=== PATIENT | female | born 1950 | race Caucasian/White ===

== ENCOUNTER 2019-11-10 01:18 | Inpatient (IN) | payer MEDICARE, MEDICAID ==
[~2019-11-10] VITALS: Ht 162.6 cm; Wt 67.6 kg
[~2019-11-10 01:18] MED LIST: ETOMIDATE 40 MG/20 ML ONE; PROPOFOL 10 MG/ML, 100ML IV ONE; ROCURONIUM 10 MG/ML,10ML ONE
--- NOTE | 2019-11-10 01:45 | NUR ---
BROUGHT IN BY AMBULANCE TRANSFERRRED FROM [facility] C/O DIFFICULTY BREATHING. ON CPAP UPON ARRIVAL TO ED. MEDICATION GIVEN [facility] : ASPIRIN 324 SOLU MEDROL 125 MG MAGNESIUM SULFATE 2 MGS. LASIX 40 MG KETAMINE 20 MG ZOSYN 4.5 MG WAS PLACED ON NITRO GTT - DC'D BY DR. BAUTISTA WAS PLACED ON HEPARIN GTT - DC'D BY DR. BAUTISTA
--- NOTE | 2019-11-10 01:46 | NUR ---
Pt report from Jose Guadalupe almanzar. This rn to assume care of pt. Pt states unable to swallow potassium pills. Oral liquid to be accomplished in lieu, per md verbal order.
[2019-11-10] MEDS ORDERED: POTASSIUM CHLORIDE 20 MEQ TAB.ER.PRT ONE (01:48)
[2019-11-10] MEDS ORDERED: ASPI-650 PO (01:55)
[2019-11-10] MEDS ORDERED: SERT50TA28 PO (01:55)
[2019-11-10] MEDS ORDERED: ATOR40TA78 PO (01:55)
[2019-11-10] MEDS ORDERED: SODIUM CHLORIDE 0.9% 1,000ML IVBOLUS ONE ×3 (02:00→04:00)
[2019-11-10] MEDS ORDERED: POTASSIUM CHLORIDE 10% 40 MEQ/30 ML UDC PO ONE (02:00)
[2019-11-10] MEDS ORDERED: AZITHROMYCIN 500 MG in SODIUM CHLORIDE 0.9% 250 ML IV ONE (02:00)
[2019-11-10] MEDS ORDERED: POTASSIUM CHLORIDE 20 MEQ TAB.ER.PRT PO ONE (02:00)
[2019-11-10 02:09] LABS: MEAN CORPUSCULAR HEMOGLOBIN 32.4 pg (27.0-34.8); MEAN CORPUSCULAR HGB CONC 33.4 g/dL (32.4-35.8); MEAN CORPUSCULAR VOLUME 97.1 fL (80-100); MEAN PLATELET VOLUME 7.2 fL (7.4-10.4); PLATELET COUNT 149 x10^3/uL (130-400); RED BLOOD COUNT 4.15 x10^6/uL (3.82-5.3)
[2019-11-10 02:20] LABS: ALANINE AMINOTRANSFERASE 78 U/L (12-78); ALBUMIN 2.8 g/dL (3.4-5.0); ANION GAP 12 mmol/L (5-15); CALCIUM 7.5 mg/dL (8.5-10.1); CHLORIDE 93 mmol/L (98-107)
[2019-11-10 02:24] LABS: ALKALINE PHOSPHATASE 123 U/L (45-117); BILIRUBIN,TOTAL 0.9 mg/dL (0.2-1.0); TOTAL PROTEIN 5.9 g/dL (6.4-8.2)
--- NOTE | 2019-11-10 02:49 | NUR ---
Pt still has a moderate work of breathing and rt called per md. Pt placed on opti-flow at this time.
[2019-11-10 03:00] LABS: RAPID INFLUENZA A Negative (Negative); RAPID INFLUENZA B Negative (Negative)
[2019-11-10] MEDS ORDERED: POTASSIUM CHLORIDE 40 MEQ in SODIUM CHLORIDE 0.9% 100 ML IV ONE (03:00)
[2019-11-10] MEDS ORDERED: POTASSIUM CHLORIDE 40 MEQ in SODIUM CHLORIDE 0.9% 500 ML IV ONE (03:00)
[2019-11-10 03:07] LABS: MD YES
[2019-11-10 03:08] LABS: ANISOCYTOSIS 1+; BAND#(MANUAL) 0.58 x10^3/uL; BANDS%(MANUAL) 4 % (0-7); ECHINOCYTES 1+; LYMPH#(MANUAL) 1.15 x10^3/uL (1-3.4); LYMPHS% (MANUAL) 8 % (22-44); MONOS#(MANUAL) 0.14 x10^3/uL (0.3-2.7); MONOS% (MANUAL) 1 % (2-9); PMNS WITH VACUOLES 1+; SEG#(MANUAL) 12.53 x10^3/uL (1.8-6.8); SEGS% (MANUAL) 87 % (42-75)
[2019-11-10 03:12] LABS: OVALOCYTES 1+; SPHEROCYTES 1+
[2019-11-10 03:13] LABS: <PLATELET ESTIMATE> DECREASED; <PLT MORPHOLOGY> NORMAL PLT MORPH; POLYCHROMASIA 1+
--- NOTE | 2019-11-10 03:16 | NUR ---
potassium drip started
--- NOTE | 2019-11-10 03:16 | NUR ---
pt was not tolerating high flow NC. iv NS discontinued. oj nunn in to discuss intubation with pt
--- NOTE | 2019-11-10 03:28 | NUR ---
pt intubated. 20 etomidate and 80 rocuronium used
[2019-11-10] MEDS ORDERED: ACETAMINOPHEN 325 MG TABLET PO PRN (03:30)
[2019-11-10] MEDS ORDERED: ONDANSETRON 2MG/ML, 2ML IVPush PRN (03:30)
[2019-11-10] MEDS ORDERED: HEPARIN 5,000 UNITS/ML, 1ML IV PRN (03:30)
[2019-11-10] MEDS ORDERED: HEPARIN 5,000 UNITS/ML, 1ML IV ONE (03:30)
--- NOTE | 2019-11-10 03:40 | NUR ---
pressure bag ns bolus per er md nunn
[2019-11-10] MEDS ORDERED: MIDAZOLAM HCL 25 MG in SODIUM CHLORIDE 0.9% 245 ML IV PRN ×2 (03:56→04:00)
[2019-11-10] MEDS ORDERED: HEPARIN 25,000 UNITS/500ML PMX 500 ML ONE (03:58)
[2019-11-10] MEDS ORDERED: HEPARIN 5,000 UNITS/ML, 1ML ONE (03:58)
[2019-11-10] MEDS ORDERED: PIPERACILLIN/TAZO/PMX 3.375GM 0 ML ONE (03:58)
[2019-11-10] MEDS ORDERED: PHARMACY MAY ADJ FOR RENAL FX MC SCH (04:00)
[2019-11-10] MEDS ORDERED: SENNA 176 MG/5 ML ORAL SOL NG PRN (04:00)
[2019-11-10] MEDS ORDERED: LIDOCAINE-MPF 1%, 2ML ENDO PRN ×2 (04:00→07:30)
[2019-11-10] MEDS ORDERED: GLUCAGON 1 MG IM PRN (04:00)
[2019-11-10] MEDS ORDERED: LACTULOSE 20 GM/30 ML UDC NG PRN (04:00)
[2019-11-10] MEDS ORDERED: FENTANYL PF 100 MCG/2ML IVPush PRN ×2 (04:00→07:30)
[2019-11-10] MEDS ORDERED: DEXTROSE 50%, 50ML SYRINGE IVPush PRN (04:00)
[2019-11-10] MEDS ORDERED: BISACODYL 10 MG SUPP PR PRN (04:00)
[2019-11-10] MEDS ORDERED: SENNA/DOCUSATE TABLET NG PRN (04:00)
[2019-11-10] MEDS ORDERED: DEXTROSE 4 GM TAB.CHEW PO PRN (04:00)
[2019-11-10] MEDS: HEPARIN 25,000 UNITS/500ML PMX 500 ML IV PRN (04:13)
[2019-11-10] MEDS ORDERED: PIPERACILLIN/TAZO/PMX 3.375GM 50 ML ONE (04:15)
--- NOTE | 2019-11-10 04:16 | NUR ---
versed used for sedation. pt tolerating vent and sedation well.
--- NOTE | 2019-11-10 04:47 | NUR ---
LARGE BOTTLE OF PROPOFOL WASTED. DR VANCE ORDERED VERSED DRIP SO PROPOFOL WAS NOT USED. RUFINO Reed RN IN TO WITNESS WASTE WITH ME.
[2019-11-10] MEDS ORDERED: PIPERACILLIN/TAZO/PMX 3.375GM 50 ML IV SCH (06:00)
[2019-11-10] MEDS ORDERED: INSULIN LISPRO 100 UNITS/ML, PEN SQ-INSULIN SCH (07:00)
[2019-11-10] MEDS ORDERED: PROPOFOL 100 ML IV PRN (07:30)
[2019-11-10] MEDS ORDERED: FAMOTIDINE 20 MG/2 ML IV SCH (07:30)
[2019-11-10] MEDS: ALBUTEROL/IPRATROPIUM 2.5MG/0.5MG, 3 ML NPPB SCH ×5 (07:30→22:27)
[2019-11-10] MEDS ORDERED: PROPOFOL 100 ML IV ONE (07:30)
[2019-11-10 07:57] LABS: BASOPHILS # (AUTO) 0.03 x10^3/uL (0-0.1); BASOPHILS % (AUTO) 0 % (0-1); EOSINOPHILS # (AUTO) 0.08 x10^3/uL (0-0.4); EOSINOPHILS % (AUTO) 1 % (1-7); LYMPHOCYTES # (AUTO) 0.79 x10^3/uL (1-3.4); LYMPHOCYTES % (AUTO) 5 % (22-44); MD NO; MEAN CORPUSCULAR HEMOGLOBIN 32.6 pg (27.0-34.8); MEAN CORPUSCULAR HGB CONC 33.2 g/dL (32.4-35.8); MEAN CORPUSCULAR VOLUME 98.1 fL (80-100); MEAN PLATELET VOLUME 7.1 fL (7.4-10.4); MONOCYTES # (AUTO) 0.27 x10^3/uL (0.2-0.8); MONOCYTES % (AUTO) 2 % (2-9); NEUTROPHILS # (AUTO) 13.84 x10^3/uL (1.8-6.8); NEUTROPHILS % (AUTO) 92 % (42-75); PLATELET COUNT 145 x10^3/uL (130-400); RED BLOOD COUNT 4.07 x10^6/uL (3.82-5.3)
[2019-11-10 08:10] LABS: ALANINE AMINOTRANSFERASE 118 U/L (12-78); ALBUMIN 2.7 g/dL (3.4-5.0); ANION GAP 7 mmol/L (5-15); CHLORIDE 100 mmol/L (98-107); CREATININE 0.48 mg/dL (0.55-1.02)
[2019-11-10 08:14] LABS: ALKALINE PHOSPHATASE 152 U/L (45-117); BILIRUBIN,TOTAL 0.8 mg/dL (0.2-1.0); TOTAL PROTEIN 5.5 g/dL (6.4-8.2)
[2019-11-10] MEDS: DOXYCYCLINE 100 MG in DEXTROSE 5% 250 ML IV SCH ×2 (09:15→20:43)
[2019-11-10] MEDS: CEFTRIAXONE PMX 1GM/50ML 50 ML IV SCH (09:15)
[2019-11-10] MEDS: SODIUM CHLORIDE FLUSH 10ML SYR IVF SCH ×2 (09:18→20:43)
[2019-11-10] MEDS: INSULIN LISPRO 100 UNITS/ML, PEN SQ-INSULIN SCH ×3 (09:57→23:17)
[2019-11-10 13:37] LABS: MICROSCOPIC INDICATED
[2019-11-10 13:50] LABS: CULTURE INDICATED? NO
[2019-11-10] MEDS: NS + 20MEQ KCL 1,000 ML IV SCH (14:09)
[2019-11-10] MEDS: PROPOFOL 100 ML IV PRN ×2 (14:32→23:06)
[2019-11-10] MEDS: MIDAZOLAM 1 MG/ML, 2ML IVPush PRN ×2 (19:42→22:22)
[2019-11-11 02:19] LABS: MEAN CORPUSCULAR HEMOGLOBIN 32.7 pg (27.0-34.8); MEAN CORPUSCULAR HGB CONC 33.7 g/dL (32.4-35.8); MEAN CORPUSCULAR VOLUME 97.1 fL (80-100); MEAN PLATELET VOLUME 7.3 fL (7.4-10.4); PLATELET COUNT 151 x10^3/uL (130-400); RED BLOOD COUNT 3.82 x10^6/uL (3.82-5.3); RED CELL DISTRIBUTION WIDTH 14.6 % (9.6-15.2)
[2019-11-11] MEDS: ALBUTEROL/IPRATROPIUM 2.5MG/0.5MG, 3 ML NPPB SCH ×5 (02:27→19:36)
[2019-11-11 02:29] LABS: ALANINE AMINOTRANSFERASE 93 U/L (12-78); ALBUMIN 2.4 g/dL (3.4-5.0); ANION GAP 6 mmol/L (5-15); BILIRUBIN, DIRECT 0.2 mg/dL (0.1-0.2); CHLORIDE 107 mmol/L (98-107); CREATININE 0.51 mg/dL (0.55-1.02)
[2019-11-11 02:32] LABS: ALKALINE PHOSPHATASE 120 U/L (45-117); BILIRUBIN,INDIRECT 0.3 mg/dL (0.0-2.0); BILIRUBIN,TOTAL 0.5 mg/dL (0.2-1.0); CHOL/HDL RATIO 1.9; CHOLESTEROL, TOTAL 122 mg/dL (140-239); HDL CHOL % 52 % (28-40); HDL CHOLESTEROL (DIRECT) 63 mg/dL (40-60); LDL CHOLESTEROL,CALCULATED 41 mg/dL (54-169); LDL/HDL RATIO 0.7 (0.5-3.0); TOTAL PROTEIN 5.2 g/dL (6.4-8.2); TRIGLYCERIDES 92 mg/dL (50-200); VLDL CHOLESTEROL 18 mg/dL (0-25)
[2019-11-11 02:53] LABS: BASOPHILS # (AUTO) 0.02 x10^3/uL (0-0.1); BASOPHILS % (AUTO) 0 % (0-1); EOSINOPHILS # (AUTO) 0.01 x10^3/uL (0-0.4); EOSINOPHILS % (AUTO) 0 % (1-7); LYMPHOCYTES # (AUTO) 1.23 x10^3/uL (1-3.4); LYMPHOCYTES % (AUTO) 7 % (22-44); MD SCAN; MONOCYTES # (AUTO) 0.69 x10^3/uL (0.2-0.8); MONOCYTES % (AUTO) 4 % (2-9); NEUTROPHILS # (AUTO) 15.19 x10^3/uL (1.8-6.8); NEUTROPHILS % (AUTO) 89 % (42-75)
[2019-11-11] MEDS: NS + 20MEQ KCL 1,000 ML IV SCH ×2 (03:50→14:37)
[2019-11-11 04:45] VITALS: BP 97/63
[2019-11-11] MEDS: INSULIN LISPRO 100 UNITS/ML, PEN SQ-INSULIN SCH ×4 (05:00→23:00)
[2019-11-11] MEDS: PROPOFOL 100 ML IV PRN (05:54)
[2019-11-11] MEDS ORDERED: POTASSIUM CHLORIDE 40 MEQ in SODIUM CHLORIDE 0.9% 500 ML IV ONE (07:00)
[2019-11-11] MEDS: ASPIRIN 81 MG TABLET CHEW PO SCH (08:49)
[2019-11-11] MEDS: SODIUM CHLORIDE FLUSH 10ML SYR IVF SCH ×2 (08:49→20:45)
[2019-11-11] MEDS ORDERED: FAMOTIDINE 20 MG/2 ML IV SCH (09:00)
[2019-11-11] MEDS: CEFTRIAXONE PMX 1GM/50ML 50 ML IV SCH (10:57)
[2019-11-11] MEDS: DOXYCYCLINE 100 MG in DEXTROSE 5% 250 ML IV SCH ×2 (10:57→20:45)
[2019-11-11] MEDS: HEPARIN 25,000 UNITS/500ML PMX 500 ML IV PRN (11:39)
[2019-11-11] MEDS ORDERED: DILTIAZEM 5 MG/ML, 5ML ONE (14:21)
[2019-11-11] MEDS ORDERED: DILTIAZEM 5 MG/ML, 5ML IVPush ONE (14:30)
[2019-11-11] MEDS ORDERED: AMIODARONE 150 MG in DEXTROSE 5% 100 ML IV ONE ×2 (14:30→16:30)
[2019-11-11] MEDS: LEVOFLOXACIN/PMX 500MG/100ML 100 ML IV SCH (14:37)
[2019-11-11 14:45] LABS: BASOPHILS # (AUTO) 0.02 x10^3/uL (0-0.1); BASOPHILS % (AUTO) 0 % (0-1); EOSINOPHILS # (AUTO) 0.07 x10^3/uL (0-0.4); EOSINOPHILS % (AUTO) 0 % (1-7); LYMPHOCYTES # (AUTO) 1.21 x10^3/uL (1-3.4); LYMPHOCYTES % (AUTO) 8 % (22-44); MD NO; MEAN CORPUSCULAR HEMOGLOBIN 32.4 pg (27.0-34.8); MEAN CORPUSCULAR HGB CONC 33.3 g/dL (32.4-35.8); MEAN CORPUSCULAR VOLUME 97.3 fL (80-100); MEAN PLATELET VOLUME 7.4 fL (7.4-10.4); MONOCYTES % (AUTO) 7 % (2-9); NEUTROPHILS # (AUTO) 13.11 x10^3/uL (1.8-6.8); NEUTROPHILS % (AUTO) 85 % (42-75); PLATELET COUNT 154 x10^3/uL (130-400); RED CELL DISTRIBUTION WIDTH 14.7 % (9.6-15.2)
[2019-11-11] MEDS: AMIODARONE 900 MG in DEXTROSE 5% 482 ML IV PRN (14:56)
[2019-11-11] MEDS ORDERED: FILTER 0.22 MICRON IV ONE (15:00)
[2019-11-11] MEDS: PANTOPRAZOLE 40 MG IV IVPush SCH (16:32)
[2019-11-12] MEDS ORDERED: TEMAZEPAM 15 MG CAPSULE PO ONE (01:00)
[2019-11-12 04:00] VITALS: BP 127/71
[2019-11-12 04:05] LABS: ANION GAP 6 mmol/L (5-15); CALCIUM 7.9 mg/dL (8.5-10.1); CHLORIDE 108 mmol/L (98-107); CREATININE 0.43 mg/dL (0.55-1.02)
[2019-11-12 04:10] LABS: TROPONIN I 0.786 ng/mL (0.000-0.045)
[2019-11-12 04:17] LABS: MEAN CORPUSCULAR HEMOGLOBIN 32.5 pg (27.0-34.8); MEAN CORPUSCULAR HGB CONC 33.5 g/dL (32.4-35.8); MEAN CORPUSCULAR VOLUME 97.3 fL (80-100); MEAN PLATELET VOLUME 7.8 fL (7.4-10.4); PLATELET COUNT 130 x10^3/uL (130-400); RED BLOOD COUNT 3.73 x10^6/uL (3.82-5.3); RED CELL DISTRIBUTION WIDTH 14.8 % (9.6-15.2)
[2019-11-12] MEDS: INSULIN LISPRO 100 UNITS/ML, PEN SQ-INSULIN SCH ×4 (04:25→21:50)
[2019-11-12] MEDS: PANTOPRAZOLE 40 MG IV IVPush SCH ×2 (04:38→16:30)
[2019-11-12 05:13] LABS: BASOPHILS # (AUTO) 0.02 x10^3/uL (0-0.1); BASOPHILS % (AUTO) 0 % (0-1); EOSINOPHILS # (AUTO) 0.12 x10^3/uL (0-0.4); EOSINOPHILS % (AUTO) 1 % (1-7); LYMPHOCYTES # (AUTO) 1.23 x10^3/uL (1-3.4); LYMPHOCYTES % (AUTO) 9 % (22-44); MD SCAN; MONOCYTES # (AUTO) 0.97 x10^3/uL (0.2-0.8); MONOCYTES % (AUTO) 7 % (2-9); NEUTROPHILS # (AUTO) 12.03 x10^3/uL (1.8-6.8); NEUTROPHILS % (AUTO) 84 % (42-75)
[2019-11-12] MEDS: ALBUTEROL/IPRATROPIUM 2.5MG/0.5MG, 3 ML NPPB SCH ×4 (07:00→20:00)
[2019-11-12] MEDS: POTASSIUM CHLORIDE 20 MEQ PACKET PO SCH ×2 (07:52→16:30)
[2019-11-12] MEDS: FUROSEMIDE 20 MG/2 ML IV SCH ×2 (07:52→16:30)
[2019-11-12] MEDS: ASPIRIN 81 MG TABLET CHEW PO SCH (07:54)
[2019-11-12] MEDS: SODIUM CHLORIDE FLUSH 10ML SYR IVF SCH ×2 (07:56→20:11)
[2019-11-12] MEDS: DOXYCYCLINE 100 MG in DEXTROSE 5% 250 ML IV SCH ×2 (08:38→20:35)
[2019-11-12] MEDS ORDERED: AMIODARONE 150 MG in DEXTROSE 5% 100 ML IV ONE ×3 (10:00→14:00)
[2019-11-12] MEDS: AMIODARONE 900 MG in DEXTROSE 5% 482 ML IV PRN ×2 (10:35→12:15)
[2019-11-12] MEDS ORDERED: HEPARIN 5,000 UNITS/ML, 1ML IV ONE (12:30)
[2019-11-12] MEDS ORDERED: HEPARIN 5,000 UNITS/ML, 1ML IV PRN (12:30)
[2019-11-12] MEDS ORDERED: HEPARIN 25,000 UNITS/500ML PMX 500 ML IV PRN (12:30)
[2019-11-12] MEDS: HEPARIN 25,000 UNITS/500ML PMX 500 ML IV PRN (13:26)
[2019-11-12] MEDS: LEVOFLOXACIN/PMX 500MG/100ML 100 ML IV SCH (13:45)
[2019-11-12] MEDS: NS + 20MEQ KCL 1,000 ML IV SCH (16:30)
[2019-11-13] MEDS: PANTOPRAZOLE 40 MG IV IVPush SCH ×2 (03:55→16:14)
[2019-11-13] MEDS: INSULIN LISPRO 100 UNITS/ML, PEN SQ-INSULIN SCH ×4 (03:56→22:54)
[2019-11-13 03:57] VITALS: BP 130/84
[2019-11-13] MEDS: AMIODARONE 900 MG in DEXTROSE 5% 482 ML IV PRN ×2 (04:01→08:58)
[2019-11-13 04:22] LABS: BASOPHILS # (AUTO) 0.03 x10^3/uL (0-0.1); BASOPHILS % (AUTO) 0 % (0-1); EOSINOPHILS # (AUTO) 0.04 x10^3/uL (0-0.4); EOSINOPHILS % (AUTO) 0 % (1-7); LYMPHOCYTES # (AUTO) 1.88 x10^3/uL (1-3.4); LYMPHOCYTES % (AUTO) 16 % (22-44); MD NO; MEAN CORPUSCULAR HEMOGLOBIN 32.2 pg (27.0-34.8); MEAN CORPUSCULAR HGB CONC 33.3 g/dL (32.4-35.8); MEAN CORPUSCULAR VOLUME 96.5 fL (80-100); MEAN PLATELET VOLUME 7.6 fL (7.4-10.4); MONOCYTES # (AUTO) 0.48 x10^3/uL (0.2-0.8); MONOCYTES % (AUTO) 4 % (2-9); NEUTROPHILS % (AUTO) 79 % (42-75); PLATELET COUNT 134 x10^3/uL (130-400); RED BLOOD COUNT 3.69 x10^6/uL (3.82-5.3); RED CELL DISTRIBUTION WIDTH 14.4 % (9.6-15.2)
[2019-11-13 04:31] LABS: ANION GAP 8 mmol/L (5-15); CALCIUM 7.9 mg/dL (8.5-10.1); CHLORIDE 106 mmol/L (98-107)
[2019-11-13 04:32] LABS: CREATININE 0.49 mg/dL (0.55-1.02)
[2019-11-13] MEDS ORDERED: MAGNESIUM SULFATE PMX 2GM/50ML 50 ML IV ONE (06:30)
[2019-11-13] MEDS: ALBUTEROL/IPRATROPIUM 2.5MG/0.5MG, 3 ML NPPB SCH ×4 (07:00→18:33)
[2019-11-13] MEDS: SODIUM CHLORIDE FLUSH 10ML SYR IVF SCH ×2 (08:21→22:54)
[2019-11-13] MEDS: FUROSEMIDE 20 MG/2 ML IV SCH ×2 (08:21→16:09)
[2019-11-13] MEDS: LISINOPRIL 10 MG TABLET PO SCH ×2 (08:22→22:48)
[2019-11-13] MEDS: DOXYCYCLINE 100 MG in DEXTROSE 5% 250 ML IV SCH ×2 (08:22→19:57)
[2019-11-13] MEDS: ASPIRIN 81 MG TABLET CHEW PO SCH (08:22)
[2019-11-13] MEDS: POTASSIUM CHLORIDE 10 MEQ TABLET.ER PO SCH ×2 (08:22→16:09)
[2019-11-13] MEDS: FILTER 0.22 MICRON IV SCH ×2 (08:58→19:57)
[2019-11-13] MEDS ORDERED: LOPERAMIDE 2 MG CAPSULE PO PRN (12:30)
[2019-11-13 14:27] VITALS: BP 136/86
[2019-11-13] MEDS: LEVOFLOXACIN/PMX 500MG/100ML 100 ML IV SCH (16:22)
[2019-11-13 19:20] VITALS: BP 122/74
[2019-11-13] MEDS ORDERED: AMIODARONE 900 MG in DEXTROSE 5% 482 ML IV PRN (19:30)
[2019-11-13] MEDS: HEPARIN 25,000 UNITS/500ML PMX 500 ML IV PRN (20:09)
[2019-11-13] MEDS: BUSPIRONE 5 MG TABLET PO SCH (22:48)
[2019-11-13] MEDS: ATORVASTATIN 40 MG TABLET PO SCH (22:48)
[2019-11-13] MEDS: CARBAMIDE PEROXIDE EAR DROPS 6.5%, 15ML EACH EAR SCH (22:54)
[2019-11-14 00:19] VITALS: BP 128/78
[2019-11-14 05:22] LABS: ALANINE AMINOTRANSFERASE 53 U/L (12-78); ALBUMIN 2.4 g/dL (3.4-5.0); ANION GAP 9 mmol/L (5-15); CALCIUM 8.2 mg/dL (8.5-10.1); CHLORIDE 105 mmol/L (98-107); CREATININE 0.55 mg/dL (0.55-1.02)
[2019-11-14 05:24] LABS: BASOPHILS # (AUTO) 0.01 x10^3/uL (0-0.1); BASOPHILS % (AUTO) 0 % (0-1); EOSINOPHILS # (AUTO) 0.11 x10^3/uL (0-0.4); EOSINOPHILS % (AUTO) 1 % (1-7); LYMPHOCYTES # (AUTO) 1.82 x10^3/uL (1-3.4); LYMPHOCYTES % (AUTO) 15 % (22-44); MD NO; MEAN CORPUSCULAR HEMOGLOBIN 32.2 pg (27.0-34.8); MEAN CORPUSCULAR HGB CONC 33.4 g/dL (32.4-35.8); MEAN CORPUSCULAR VOLUME 96.4 fL (80-100); MEAN PLATELET VOLUME 7.5 fL (7.4-10.4); MONOCYTES # (AUTO) 0.15 x10^3/uL (0.2-0.8); MONOCYTES % (AUTO) 1 % (2-9); NEUTROPHILS # (AUTO) 10.02 x10^3/uL (1.8-6.8); NEUTROPHILS % (AUTO) 83 % (42-75); PLATELET COUNT 163 x10^3/uL (130-400); RED BLOOD COUNT 3.72 x10^6/uL (3.82-5.3); RED CELL DISTRIBUTION WIDTH 14.9 % (9.6-15.2)
[2019-11-14 05:25] LABS: ALKALINE PHOSPHATASE 95 U/L (45-117); TOTAL PROTEIN 5.4 g/dL (6.4-8.2)
[2019-11-14] MEDS: INSULIN LISPRO 100 UNITS/ML, PEN SQ-INSULIN SCH ×2 (05:32→11:50)
[2019-11-14] MEDS: PANTOPRAZOLE 40 MG IV IVPush SCH (05:48)
[2019-11-14] MEDS: CARBAMIDE PEROXIDE EAR DROPS 6.5%, 15ML EACH EAR SCH ×2 (06:35→21:00)
[2019-11-14] MEDS: ALBUTEROL/IPRATROPIUM 2.5MG/0.5MG, 3 ML NPPB SCH ×4 (06:51→20:00)
[2019-11-14] MEDS ORDERED: POTASSIUM CHLORIDE 10 MEQ TABLET.ER ONE ×2 (07:42→17:31)
[2019-11-14] MEDS: ASPIRIN 81 MG TABLET CHEW PO SCH (07:45)
[2019-11-14] MEDS: SODIUM CHLORIDE FLUSH 10ML SYR IVF SCH ×2 (07:45→21:42)
[2019-11-14] MEDS: BUSPIRONE 5 MG TABLET PO SCH ×2 (07:45→21:41)
[2019-11-14] MEDS: POTASSIUM CHLORIDE 20 MEQ TAB.ER.PRT PO SCH ×2 (07:47→17:34)
[2019-11-14] MEDS: FUROSEMIDE 20 MG/2 ML IV SCH ×2 (07:47→17:34)
[2019-11-14] MEDS: LISINOPRIL 10 MG TABLET PO SCH ×2 (07:49→21:00)
[2019-11-14 07:54] VITALS: BP 122/77
[2019-11-14] MEDS: DOXYCYCLINE 100 MG in DEXTROSE 5% 250 ML IV SCH ×2 (08:46→22:09)
[2019-11-14 13:42] VITALS: BP 122/83
[2019-11-14] MEDS ORDERED: LEVOFLOXACIN/PMX 250MG/50ML 50 ML IV SCH (14:00)
[2019-11-14] MEDS: PANTOPROZOLE 40MG TABLET PO SCH (17:34)
[2019-11-14 21:02] VITALS: BP 105/69
[2019-11-14] MEDS: ATORVASTATIN 40 MG TABLET PO SCH (21:41)
[2019-11-14] MEDS: SERTRALINE 50MG TABLET PO SCH (21:41)
[2019-11-14] MEDS: SIMETHICONE 125 MG CHEW TAB PO SCH (23:56)
[2019-11-15 01:26] VITALS: BP 97/60
[2019-11-15 02:04] LABS: OCCULT BLOOD NEGATIVE (NEGATIVE)
[2019-11-15 06:21] LABS: MEAN CORPUSCULAR HEMOGLOBIN 32.6 pg (27.0-34.8); MEAN CORPUSCULAR HGB CONC 33.8 g/dL (32.4-35.8); MEAN CORPUSCULAR VOLUME 96.6 fL (80-100); MEAN PLATELET VOLUME 7.6 fL (7.4-10.4); PLATELET COUNT 237 x10^3/uL (130-400); RED BLOOD COUNT 2.69 x10^6/uL (3.82-5.3); RED CELL DISTRIBUTION WIDTH 14.5 % (9.6-15.2)
[2019-11-15] MEDS: HEPARIN 25,000 UNITS/500ML PMX 500 ML IV PRN (06:27)
[2019-11-15 06:53] LABS: MD YES
[2019-11-15 06:54] LABS: BAND#(MANUAL) 1.64 x10^3/uL; BANDS%(MANUAL) 6 % (0-7); EOS#(MANUAL) 0.55 x10^3/uL (0.0-0.4); EOS% (MANUAL) 2 % (1-7); LYMPH#(MANUAL) 1.64 x10^3/uL (1-3.4); LYMPHS% (MANUAL) 6 % (22-44); MONOS#(MANUAL) 0.27 x10^3/uL (0.3-2.7); MONOS% (MANUAL) 1 % (2-9); SEG#(MANUAL) 23.29 x10^3/uL (1.8-6.8); SEGS% (MANUAL) 85 % (42-75)
[2019-11-15 06:55] LABS: <PLATELET ESTIMATE> ADEQUATE; <PLT MORPHOLOGY> NORMAL PLT MORPH; POLYCHROMASIA 1+
[2019-11-15] MEDS: ALBUTEROL/IPRATROPIUM 2.5MG/0.5MG, 3 ML NPPB SCH (07:00)
[2019-11-15] MEDS ORDERED: LEVOFLOXACIN/PMX 750MG/150ML 150 ML IV SCH (07:00)
[2019-11-15 07:20] LABS: ANION GAP 10 mmol/L (5-15); CALCIUM 8.2 mg/dL (8.5-10.1); CHLORIDE 103 mmol/L (98-107)
[2019-11-15] MEDS ORDERED: MAGNESIUM SULFATE PMX 2GM/50ML 50 ML IV ONE (07:30)
[2019-11-15 07:50] VITALS: BP_SYST 108; BP_SYST 113; BP_SYST 79; BP_DIAS 57; BP_DIAS 61; BP_DIAS 69
[2019-11-15] MEDS ORDERED: ALBUTEROL/IPRATROPIUM 2.5MG/0.5MG, 3 ML NPPB PRN (08:00)
[2019-11-15] MEDS: FUROSEMIDE 20 MG/2 ML IV SCH (08:15)
[2019-11-15] MEDS: LISINOPRIL 10 MG TABLET PO SCH ×2 (08:16→20:34)
[2019-11-15] MEDS: SIMETHICONE 125 MG CHEW TAB PO SCH ×3 (08:58→18:00)
[2019-11-15] MEDS: SERTRALINE 50MG TABLET PO SCH (08:58)
[2019-11-15] MEDS: PANTOPROZOLE 40MG TABLET PO SCH ×2 (08:59→20:32)
[2019-11-15] MEDS: ASPIRIN 81 MG TABLET CHEW PO SCH (08:59)
[2019-11-15] MEDS: BUSPIRONE 5 MG TABLET PO SCH ×2 (08:59→20:33)
[2019-11-15] MEDS: SODIUM CHLORIDE FLUSH 10ML SYR IVF SCH ×2 (09:06→20:34)
[2019-11-15] MEDS: CARBAMIDE PEROXIDE EAR DROPS 6.5%, 15ML EACH EAR SCH ×2 (09:07→20:33)
[2019-11-15] MEDS ORDERED: SODIUM CHLORIDE 0.9% 1,000 ML IV SCH (11:00)
[2019-11-15] MEDS ORDERED: VERAPAMIL 2.5 MG/ML, 2ML ONE (11:29)
[2019-11-15] MEDS ORDERED: BIVALIRUDIN 250 MG ONE (11:29)
[2019-11-15] MEDS ORDERED: LIDOCAINE 1%, 20ML ONE (11:29)
[2019-11-15] MEDS ORDERED: NITROGLYCERIN 5 MG/ML, 10ML ONE (11:29)
[2019-11-15] MEDS ORDERED: FENTANYL PF 100 MCG/2ML ONE (11:29)
[2019-11-15] MEDS ORDERED: MIDAZOLAM 1 MG/ML, 5ML ONE (11:29)
[2019-11-15 13:00] VITALS: BP 92/60
[2019-11-15] MEDS: SODIUM CHLORIDE 0.9% 1,000 ML IV SCH ×2 (13:22→20:34)
[2019-11-15] MEDS ORDERED: SODIUM CHLORIDE 0.9% 1,000ML IVBOLUS ONE (14:00)
[2019-11-15] MEDS ORDERED: VASOPRESSIN 100 UNIT in SODIUM CHLORIDE 0.9% 495 ML IV PRN (17:30)
[2019-11-15] MEDS: NOREPINEPHRINE 4 MG in SODIUM CHLORIDE 0.9% 246 ML IV PRN (17:33)
[2019-11-15] MEDS: PIPERACILLIN/TAZO/PMX 3.375GM 50 ML IV SCH (18:33)
[2019-11-15] MEDS: ATORVASTATIN 40 MG TABLET PO SCH (20:32)
[2019-11-15 22:11] VITALS: BP 93/53
[2019-11-15 22:26] VITALS: BP 98/63
[2019-11-16 00:36] VITALS: BP 106/36
[2019-11-16] MEDS: PIPERACILLIN/TAZO/PMX 3.375GM 50 ML IV SCH ×4 (00:56→20:27)
[2019-11-16 01:37] VITALS: BP 92/50
[2019-11-16 02:18] LABS: MEAN CORPUSCULAR HEMOGLOBIN 32.2 pg (27.0-34.8); MEAN CORPUSCULAR HGB CONC 33.5 g/dL (32.4-35.8); PLATELET COUNT 220 x10^3/uL (130-400); RED BLOOD COUNT 2.73 x10^6/uL (3.82-5.3); RED CELL DISTRIBUTION WIDTH 14.8 % (9.6-15.2)
[2019-11-16 02:23] LABS: ANION GAP 12 mmol/L (5-15); CALCIUM 7.4 mg/dL (8.5-10.1); CHLORIDE 104 mmol/L (98-107); CREATININE 1.99 mg/dL (0.55-1.02)
[2019-11-16 02:25] LABS: INTERNATIONAL NORMALIZED RATIO 1.12 (0.93-1.1); PROTHROMBIN TIME 11.7 Seconds (9.6-11.5)
[2019-11-16 02:41] LABS: MD YES
[2019-11-16 02:43] LABS: BAND#(MANUAL) 2.88 x10^3/uL; BANDS%(MANUAL) 7 % (0-7); LYMPH#(MANUAL) 3.29 x10^3/uL (1-3.4); LYMPHS% (MANUAL) 8 % (22-44); METAMYELOCYTES# (MANUAL) 0.41 x10^3/uL (0-0); METAMYELOCYTES% (MANUAL) 1 % (0-1); MONOS#(MANUAL) 1.64 x10^3/uL (0.3-2.7); MONOS% (MANUAL) 4 % (2-9); SEG#(MANUAL) 32.88 x10^3/uL (1.8-6.8); SEGS% (MANUAL) 80 % (42-75)
[2019-11-16 02:44] LABS: <PLATELET ESTIMATE> ADEQUATE; <PLT MORPHOLOGY> NORMAL PLT MORPH; <RBC MORPHOLOGY> NORMAL
[2019-11-16] MEDS: NOREPINEPHRINE 4 MG in SODIUM CHLORIDE 0.9% 246 ML IV PRN ×2 (04:43→17:19)
[2019-11-16] MEDS ORDERED: MIDAZOLAM 1 MG/ML, 2ML ONE (05:06)
[2019-11-16] MEDS ORDERED: FENTANYL PF 250 MCG/5ML ONE (05:06)
[2019-11-16] MEDS ORDERED: EPHEDRINE 50 MG/ML, 1ML ONE (05:39)
[2019-11-16] MEDS ORDERED: ROCURONIUM 10 MG/ML,10ML ONE (05:39)
[2019-11-16] MEDS ORDERED: CEFAZOLIN 1,000 MG ONE (05:39)
[2019-11-16] MEDS ORDERED: PHENYLEPHRINE 10 MG/ML ONE (05:39)
[2019-11-16] MEDS ORDERED: SUCCINYLCHOLINE 20 MG/ML, 10ML ONE (05:39)
[2019-11-16] MEDS: PANTOPROZOLE 40MG TABLET PO SCH ×2 (05:58→15:25)
[2019-11-16] MEDS ORDERED: PROPOFOL 100 ML IV ONE (07:25)
[2019-11-16 07:31] LABS: FIO2 60 %
[2019-11-16] MEDS: SIMETHICONE 125 MG CHEW TAB PO SCH ×3 (08:00→15:28)
[2019-11-16] MEDS: LISINOPRIL 10 MG TABLET PO SCH ×2 (09:00→21:13)
[2019-11-16] MEDS: CARBAMIDE PEROXIDE EAR DROPS 6.5%, 15ML EACH EAR SCH ×2 (09:00→21:00)
[2019-11-16] MEDS: SODIUM CHLORIDE FLUSH 10ML SYR IVF SCH ×2 (09:00→21:18)
[2019-11-16] MEDS: SERTRALINE 50MG TABLET PO SCH (10:36)
[2019-11-16] MEDS: ASPIRIN 81 MG TABLET CHEW PO SCH (10:36)
[2019-11-16] MEDS: SODIUM CHLORIDE 0.9% 1,000 ML IV SCH ×2 (12:13→17:20)
[2019-11-16] MEDS ORDERED: LEVOFLOXACIN/PMX 750MG/150ML 150 ML IV SCH (15:00)
[2019-11-16] MEDS ORDERED: SODIUM CHLORIDE 0.9%, 500ML IVBOLUS ONE (15:00)
[2019-11-16] MEDS: ATORVASTATIN 40 MG TABLET PO SCH (21:16)
[2019-11-17] MEDS: SODIUM CHLORIDE 0.9% 1,000 ML IV SCH ×2 (01:59→12:57)
[2019-11-17] MEDS: PIPERACILLIN/TAZO/PMX 3.375GM 50 ML IV SCH ×4 (02:10→22:17)
[2019-11-17 05:11] LABS: MEAN CORPUSCULAR HEMOGLOBIN 31.4 pg (27.0-34.8); MEAN CORPUSCULAR HGB CONC 33.5 g/dL (32.4-35.8); MEAN CORPUSCULAR VOLUME 93.8 fL (80-100); MEAN PLATELET VOLUME 6.8 fL (7.4-10.4); PLATELET COUNT 153 x10^3/uL (130-400); RED BLOOD COUNT 2.65 x10^6/uL (3.82-5.3); RED CELL DISTRIBUTION WIDTH 15.9 % (9.6-15.2)
[2019-11-17 05:31] LABS: MD YES
[2019-11-17 05:33] LABS: <PLATELET ESTIMATE> ADEQUATE; <PLT MORPHOLOGY> NORMAL PLT MORPH; <RBC MORPHOLOGY> NORMAL; BAND#(MANUAL) 0.85 x10^3/uL; BANDS%(MANUAL) 4 % (0-7); LYMPH#(MANUAL) 1.06 x10^3/uL (1-3.4); LYMPHS% (MANUAL) 5 % (22-44); MONOS#(MANUAL) 1.48 x10^3/uL (0.3-2.7); MONOS% (MANUAL) 7 % (2-9); SEG#(MANUAL) 17.81 x10^3/uL (1.8-6.8); SEGS% (MANUAL) 84 % (42-75)
[2019-11-17] MEDS: PANTOPROZOLE 40MG TABLET PO SCH ×2 (05:35→16:37)
[2019-11-17] MEDS: CARBAMIDE PEROXIDE EAR DROPS 6.5%, 15ML EACH EAR SCH ×2 (09:00→20:51)
[2019-11-17] MEDS: ASPIRIN 81 MG TABLET CHEW PO SCH (09:01)
[2019-11-17] MEDS: SERTRALINE 50MG TABLET PO SCH (09:02)
[2019-11-17] MEDS: SODIUM CHLORIDE FLUSH 10ML SYR IVF SCH ×2 (09:02→20:49)
[2019-11-17] MEDS: LISINOPRIL 10 MG TABLET PO SCH ×2 (09:02→20:49)
[2019-11-17 10:48] LABS: ANION GAP 9 mmol/L (5-15); CALCIUM 6.5 mg/dL (8.5-10.1); CHLORIDE 110 mmol/L (98-107)
[2019-11-17 10:49] LABS: CREATININE 0.86 mg/dL (0.55-1.02)
[2019-11-17] MEDS ORDERED: FUROSEMIDE 20 MG/2 ML IVPush ONE (12:00)
[2019-11-17] MEDS: POTASSIUM CHLORIDE 20 MEQ TAB.ER.PRT PO SCH ×2 (12:29→20:48)
[2019-11-17 13:13] VITALS: BP 115/72
[2019-11-17] MEDS ORDERED: POTASSIUM CHLORIDE 20 MEQ TAB.ER.PRT PO ONE (13:30)
[2019-11-17] MEDS ORDERED: CALCIUM GLUCONATE 9.2 MEQ in SODIUM CHLORIDE 0.9% 100 ML IV ONE (14:30)
[2019-11-17] MEDS ORDERED: LEVOFLOXACIN/PMX 750MG/150ML 150 ML IV SCH (15:00)
[2019-11-17 17:56] VITALS: BP 135/85
[2019-11-17] MEDS ORDERED: METOPROLOL SUCCINATE 25 MG TAB.ER.24H ONE (18:40)
[2019-11-17] MEDS: METOPROLOL SUCCINATE 25 MG TAB.ER.24H PO SCH (18:42)
[2019-11-17 19:55] VITALS: BP 115/63
[2019-11-17] MEDS: ATORVASTATIN 40 MG TABLET PO SCH (20:49)
[2019-11-17 20:55] VITALS: BP 94/61
[2019-11-17 21:42] LABS: FREE T4 (FREE THYROXINE) 1.22 ng/dL (0.76-1.46)
[2019-11-17 22:25] VITALS: BP 101/66
[2019-11-18 01:52] VITALS: BP 105/71
[2019-11-18] MEDS: PIPERACILLIN/TAZO/PMX 3.375GM 50 ML IV SCH ×4 (04:27→22:35)
[2019-11-18 04:58] LABS: BASOPHILS % (AUTO) 0 % (0-1); EOSINOPHILS # (AUTO) 0.01 x10^3/uL (0-0.4); EOSINOPHILS % (AUTO) 0 % (1-7); LYMPHOCYTES % (AUTO) 8 % (22-44); MD NO; MEAN CORPUSCULAR HEMOGLOBIN 31.6 pg (27.0-34.8); MEAN CORPUSCULAR HGB CONC 33.4 g/dL (32.4-35.8); MEAN CORPUSCULAR VOLUME 94.6 fL (80-100); MEAN PLATELET VOLUME 6.9 fL (7.4-10.4); MONOCYTES # (AUTO) 0.87 x10^3/uL (0.2-0.8); MONOCYTES % (AUTO) 5 % (2-9); NEUTROPHILS # (AUTO) 14.27 x10^3/uL (1.8-6.8); NEUTROPHILS % (AUTO) 86 % (42-75); PLATELET COUNT 159 x10^3/uL (130-400); RED BLOOD COUNT 2.49 x10^6/uL (3.82-5.3); RED CELL DISTRIBUTION WIDTH 16.4 % (9.6-15.2)
[2019-11-18] MEDS: PANTOPROZOLE 40MG TABLET PO SCH ×2 (06:16→16:46)
[2019-11-18 06:32] VITALS: BP 108/72
[2019-11-18] MEDS: METOPROLOL SUCCINATE 25 MG TAB.ER.24H PO SCH (06:33)
[2019-11-18 07:29] VITALS: BP 118/72
[2019-11-18] MEDS: CARBAMIDE PEROXIDE EAR DROPS 6.5%, 15ML EACH EAR SCH ×2 (09:00→21:00)
[2019-11-18] MEDS: SERTRALINE 50MG TABLET PO SCH (10:23)
[2019-11-18] MEDS: AMIODARONE 200 MG TABLET PO SCH ×2 (10:23→21:31)
[2019-11-18] MEDS: ASPIRIN 81 MG TABLET CHEW PO SCH (10:23)
[2019-11-18] MEDS: SODIUM CHLORIDE FLUSH 10ML SYR IVF SCH ×2 (10:24→21:00)
[2019-11-18] MEDS: POTASSIUM CHLORIDE 20 MEQ TAB.ER.PRT PO SCH ×2 (10:24→21:31)
[2019-11-18 10:36] LABS: ANION GAP 7 mmol/L (5-15); CALCIUM 7.5 mg/dL (8.5-10.1); CHLORIDE 108 mmol/L (98-107)
[2019-11-18 10:38] LABS: CREATININE 0.81 mg/dL (0.55-1.02)
[2019-11-18 12:24] VITALS: BP 104/66
[2019-11-18] MEDS ORDERED: SODIUM CHLORIDE 0.9% 1,000 ML IV SCH (12:57)
[2019-11-18] MEDS ORDERED: POTASSIUM CHLORIDE 20 MEQ TAB.ER.PRT PO ONE (15:00)
[2019-11-18 19:10] VITALS: BP 151/53
[2019-11-18] MEDS: ATORVASTATIN 40 MG TABLET PO SCH (21:30)
[2019-11-19 00:29] VITALS: BP 152/81
[2019-11-19] MEDS: PIPERACILLIN/TAZO/PMX 3.375GM 50 ML IV SCH ×3 (04:41→17:36)
[2019-11-19 04:45] LABS: BASOPHILS # (AUTO) 0.06 x10^3/uL (0-0.1); BASOPHILS % (AUTO) 0 % (0-1); EOSINOPHILS # (AUTO) 0.11 x10^3/uL (0-0.4); EOSINOPHILS % (AUTO) 1 % (1-7); LYMPHOCYTES % (AUTO) 14 % (22-44); MD NO; MEAN CORPUSCULAR HEMOGLOBIN 32.2 pg (27.0-34.8); MEAN CORPUSCULAR HGB CONC 33.5 g/dL (32.4-35.8); MEAN CORPUSCULAR VOLUME 96.3 fL (80-100); MEAN PLATELET VOLUME 6.7 fL (7.4-10.4); MONOCYTES # (AUTO) 0.76 x10^3/uL (0.2-0.8); MONOCYTES % (AUTO) 5 % (2-9); NEUTROPHILS # (AUTO) 11.36 x10^3/uL (1.8-6.8); NEUTROPHILS % (AUTO) 80 % (42-75); PLATELET COUNT 174 x10^3/uL (130-400); RED BLOOD COUNT 2.55 x10^6/uL (3.82-5.3); RED CELL DISTRIBUTION WIDTH 16.6 % (9.6-15.2)
[2019-11-19 04:57] LABS: ANION GAP 5 mmol/L (5-15); CALCIUM 7.2 mg/dL (8.5-10.1); CHLORIDE 111 mmol/L (98-107); CREATININE 0.53 mg/dL (0.55-1.02)
[2019-11-19] MEDS: PANTOPROZOLE 40MG TABLET PO SCH ×2 (06:12→17:36)
[2019-11-19 06:52] VITALS: BP 134/85
[2019-11-19] MEDS ORDERED: FUROSEMIDE 20 MG TABLET PO ONE (08:00)
[2019-11-19] MEDS ORDERED: SERTRALINE 100MG TABLET ONE (08:58)
[2019-11-19] MEDS ORDERED: METOPROLOL SUCCINATE 25 MG TAB.ER.24H PO SCH (09:00)
[2019-11-19] MEDS: LISINOPRIL 5 MG TABLET PO SCH ×2 (09:06→20:44)
[2019-11-19] MEDS: AMIODARONE 200 MG TABLET PO SCH ×2 (09:07→20:44)
[2019-11-19] MEDS: SERTRALINE 50MG TABLET PO SCH (09:07)
[2019-11-19] MEDS: ASPIRIN 81 MG TABLET CHEW PO SCH (09:08)
[2019-11-19] MEDS: SODIUM CHLORIDE FLUSH 10ML SYR IVF SCH ×2 (09:08→20:46)
[2019-11-19] MEDS: POTASSIUM CHLORIDE 20 MEQ TAB.ER.PRT PO SCH ×2 (09:08→20:44)
[2019-11-19] MEDS: CARBAMIDE PEROXIDE EAR DROPS 6.5%, 15ML EACH EAR SCH ×2 (09:08→20:48)
[2019-11-19 12:32] VITALS: BP 133/82
[2019-11-19 20:34] VITALS: BP 135/85
[2019-11-19] MEDS: ATORVASTATIN 40 MG TABLET PO SCH (20:44)
[2019-11-20] MEDS: PIPERACILLIN/TAZO/PMX 3.375GM 50 ML IV SCH ×5 (00:05→23:50)
[2019-11-20 00:35] VITALS: BP 150/82
[2019-11-20] MEDS: PANTOPROZOLE 40MG TABLET PO SCH ×2 (05:38→18:19)
[2019-11-20 06:33] VITALS: BP 148/88
[2019-11-20 06:52] LABS: BASOPHILS # (AUTO) 0.03 x10^3/uL (0-0.1); BASOPHILS % (AUTO) 0 % (0-1); EOSINOPHILS # (AUTO) 0.05 x10^3/uL (0-0.4); EOSINOPHILS % (AUTO) 0 % (1-7); LYMPHOCYTES # (AUTO) 1.67 x10^3/uL (1-3.4); LYMPHOCYTES % (AUTO) 13 % (22-44); MD NO; MEAN CORPUSCULAR HEMOGLOBIN 31.8 pg (27.0-34.8); MEAN CORPUSCULAR HGB CONC 33.4 g/dL (32.4-35.8); MEAN CORPUSCULAR VOLUME 95.2 fL (80-100); MEAN PLATELET VOLUME 6.4 fL (7.4-10.4); MONOCYTES # (AUTO) 0.65 x10^3/uL (0.2-0.8); MONOCYTES % (AUTO) 5 % (2-9); NEUTROPHILS # (AUTO) 10.25 x10^3/uL (1.8-6.8); NEUTROPHILS % (AUTO) 81 % (42-75); PLATELET COUNT 208 x10^3/uL (130-400); RED BLOOD COUNT 2.68 x10^6/uL (3.82-5.3); RED CELL DISTRIBUTION WIDTH 16.6 % (9.6-15.2)
[2019-11-20] MEDS ORDERED: FUROSEMIDE 20 MG/2 ML IV ONE (08:00)
[2019-11-20] MEDS: CARBAMIDE PEROXIDE EAR DROPS 6.5%, 15ML EACH EAR SCH ×2 (09:00→20:45)
[2019-11-20] MEDS: SERTRALINE 50MG TABLET PO SCH (09:55)
[2019-11-20] MEDS ORDERED: SERTRALINE 100MG TABLET ONE (10:00)
[2019-11-20] MEDS: SODIUM CHLORIDE FLUSH 10ML SYR IVF SCH ×2 (11:09→20:45)
[2019-11-20] MEDS: ASPIRIN 81 MG TABLET CHEW PO SCH (11:09)
[2019-11-20] MEDS: AMIODARONE 200 MG TABLET PO SCH ×2 (11:11→20:45)
[2019-11-20] MEDS: POTASSIUM CHLORIDE 20 MEQ TAB.ER.PRT PO SCH ×2 (11:11→20:44)
[2019-11-20] MEDS: LISINOPRIL 5 MG TABLET PO SCH ×2 (11:11→20:45)
[2019-11-20] MEDS: METOPROLOL SUCCINATE 25 MG TAB.ER.24H PO SCH ×2 (11:11→20:45)
[2019-11-20 12:37] VITALS: BP 123/78
[2019-11-20 20:15] VITALS: BP 146/86
[2019-11-20] MEDS: ATORVASTATIN 40 MG TABLET PO SCH (20:44)
[2019-11-21 01:38] VITALS: BP 147/85
[2019-11-21 05:04] LABS: BASOPHILS # (AUTO) 0.02 x10^3/uL (0-0.1); BASOPHILS % (AUTO) 0 % (0-1); EOSINOPHILS # (AUTO) 0.08 x10^3/uL (0-0.4); EOSINOPHILS % (AUTO) 1 % (1-7); LYMPHOCYTES # (AUTO) 1.96 x10^3/uL (1-3.4); LYMPHOCYTES % (AUTO) 17 % (22-44); MD NO; MEAN CORPUSCULAR HEMOGLOBIN 31.6 pg (27.0-34.8); MEAN CORPUSCULAR HGB CONC 33.1 g/dL (32.4-35.8); MEAN CORPUSCULAR VOLUME 95.4 fL (80-100); MEAN PLATELET VOLUME 6.7 fL (7.4-10.4); MONOCYTES # (AUTO) 0.71 x10^3/uL (0.2-0.8); MONOCYTES % (AUTO) 6 % (2-9); NEUTROPHILS # (AUTO) 8.77 x10^3/uL (1.8-6.8); NEUTROPHILS % (AUTO) 76 % (42-75); PLATELET COUNT 220 x10^3/uL (130-400); RED BLOOD COUNT 2.57 x10^6/uL (3.82-5.3); RED CELL DISTRIBUTION WIDTH 16.7 % (9.6-15.2)
[2019-11-21] MEDS: PIPERACILLIN/TAZO/PMX 3.375GM 50 ML IV SCH (06:00)
[2019-11-21] MEDS: PANTOPROZOLE 40MG TABLET PO SCH (06:01)
[2019-11-21 06:39] VITALS: BP 152/88
[2019-11-21] MEDS ORDERED: SERTRALINE 100MG TABLET ONE (07:29)
[2019-11-21] MEDS: POTASSIUM CHLORIDE 20 MEQ TAB.ER.PRT PO SCH (07:48)
[2019-11-21] MEDS: AMIODARONE 200 MG TABLET PO SCH (07:49)
[2019-11-21] MEDS: LISINOPRIL 5 MG TABLET PO SCH (07:49)
[2019-11-21] MEDS: METOPROLOL SUCCINATE 25 MG TAB.ER.24H PO SCH (07:50)
[2019-11-21] MEDS: ASPIRIN 81 MG TABLET CHEW PO SCH (07:50)
[2019-11-21] MEDS: SERTRALINE 50MG TABLET PO SCH (07:51)
[2019-11-21] MEDS: SODIUM CHLORIDE FLUSH 10ML SYR IVF SCH (07:57)
[2019-11-21] MEDS: CARBAMIDE PEROXIDE EAR DROPS 6.5%, 15ML EACH EAR SCH (08:00)
[2019-11-21] MEDS ORDERED: FUROSEMIDE 20 MG TABLET PO SCH (09:00)
[2019-11-21] MEDS ORDERED: CALCIUM/VITAMIN D3 250-125 TABLET PO SCH (09:00)
[2019-11-21] MEDS ORDERED: LISI5TAB7 PO (11:08)
[2019-11-21] MEDS ORDERED: METO25TA91 PO (11:08)
[2019-11-21] MEDS ORDERED: POTA20TA6 PO ×2 (11:08→11:18)
[2019-11-21] MEDS ORDERED: CALC1TAB68 PO (11:08)
[2019-11-21] MEDS ORDERED: FURO20TA3 PO (11:08)
[2019-11-21] MEDS ORDERED: AMIO200T42 PO (11:08)
[2019-11-21] MEDS ORDERED: AMOX1TAB61 PO (11:08)
== END 2019-11-21 11:55 | disposition home or self-care (01) | DRG 853 ==
LOC: ED 03:00 → EDIP 03:33 → CCU 05:23 → 5SO 11-13 14:08 → CCU 11-15 16:39 → 5SO 11-17 12:34 → DCLOUNGE 11-21 11:21
PROVIDERS: ADMIT Internal Medicine; ATTEND Family Medicine
PROC: 5A1945Z Respiratory Ventilation, 24-96 Consecutive Hours (ICD-10-PCS; 2019-11-10)
PROC: 0BH17EZ Insertion of Endotracheal Airway into Trachea, Via Natural or Artificial Opening (ICD-10-PCS; 2019-11-10)
PROC: 0T9B70Z Drainage of Bladder with Drainage Device, Via Natural or Artificial Opening (ICD-10-PCS; 2019-11-10)
PROC: 4A023N7 Measurement of Cardiac Sampling and Pressure, Left Heart, Percutaneous Approach (ICD-10-PCS; 2019-11-15)
PROC: B2111ZZ Fluoroscopy of Multiple Coronary Arteries using Low Osmolar Contrast (ICD-10-PCS; 2019-11-15)
PROC: B2151ZZ Fluoroscopy of Left Heart using Low Osmolar Contrast (ICD-10-PCS; 2019-11-15)
PROC: 30233N1 Transfusion of Nonautologous Red Blood Cells into Peripheral Vein, Percutaneous Approach (ICD-10-PCS; 2019-11-15)
PROC: 5A1935Z Respiratory Ventilation, Less than 24 Consecutive Hours (ICD-10-PCS; 2019-11-16)
PROC: 0BH17EZ Insertion of Endotracheal Airway into Trachea, Via Natural or Artificial Opening (ICD-10-PCS; 2019-11-16)
PROC: 0WJG0ZZ Inspection of Peritoneal Cavity, Open Approach (ICD-10-PCS; 2019-11-16)
PROC: 0WCH0ZZ Extirpation of Matter from Retroperitoneum, Open Approach (ICD-10-PCS; principal; 2019-11-16 05:00)
DX: A41.9 Sepsis, unspecified organism (principal); J96.01 Acute respiratory failure with hypoxia; I21.A1 Myocardial infarction type 2; K66.1 Hemoperitoneum; R57.1 Hypovolemic shock; J15.6 Pneumonia due to other Gram-negative bacteria; J44.0 Chronic obstructive pulmonary disease with (acute) lower respiratory infection; D62 Acute posthemorrhagic anemia; D68.69 Other thrombophilia; E87.1 Hypo-osmolality and hyponatremia; E87.2 Acidosis; I42.9 Cardiomyopathy, unspecified; I47.1 Supraventricular tachycardia; I50.42 Chronic combined systolic (congestive) and diastolic (congestive) heart failure; R65.20 Severe sepsis without septic shock; E87.6 Hypokalemia; F17.210 Nicotine dependence, cigarettes, uncomplicated; I11.0 Hypertensive heart disease with heart failure; T38.0X5A Adverse effect of glucocorticoids and synthetic analogues, initial encounter; I27.20 Pulmonary hypertension, unspecified; I48.91 Unspecified atrial fibrillation; Z79.82 Long term (current) use of aspirin; Z79.899 Other long term (current) drug therapy; Z82.49 Family history of ischemic heart disease and other diseases of the circulatory system; Z86.73 Personal history of transient ischemic attack (TIA), and cerebral infarction without residual deficits
CPT/HCPCS: 31500; 36415; 36600; 71045; 74018; 74176; 80048; 80053; 80061; 80076; 81001; 82272; 82330; 82803; 82962; 83036; 83605; 83690; 83735; 84145; 84439; 84443; 84478; 84484; 85014; 85018; 85025; 85520; 85610; 85730; 86850; 86900; 86923; 87070; 87077; 87081; 87205; 87400; 93005; 93306; 93458; 94002; 94003; 94150; 94640; 99156; 99157; 99291; C1729; C1760; C1769; C1894; G0378; J0456; J0583; J0610; J0690; J0696; J1644; J1956; J2250; J2405; J2543; J2704; J3010; J3480; J7060; J7620; C9113; J0282; J0330; J1815; J1940; J2370; J3475; J3490; J7030; J7040; J7050; P9016; Q9967

== ENCOUNTER 2019-11-24 16:29 | Emergency (ER) | payer MEDICARE, MEDICAID ==
[~2019-11-24] VITALS: Ht 165.1 cm; Wt 58.0 kg
[~2019-11-24 16:29] MED LIST changes: +AMIO200T42 PO; +AMOX1TAB61 PO; +ASPI-650 PO; +ATOR40TA78 PO; +CALC1TAB68 PO; -ETOMIDATE 40 MG/20 ML ONE; +FURO20TA3 PO; +LISI5TAB7 PO; +METO25TA91 PO; +POTA20TA6 PO; -PROPOFOL 10 MG/ML, 100ML IV ONE; -ROCURONIUM 10 MG/ML,10ML ONE; +SERT50TA28 PO
--- NOTE | 2019-11-24 17:07 | NUR ---
ERMD IN TO PERFORM PELVIC EXAM
[2019-11-24 17:33] LABS: MICROSCOPIC INDICATED
[2019-11-24 17:35] LABS: ALBUMIN 2.6 g/dL (3.4-5.0); ANION GAP 7 mmol/L (5-15); CALCIUM 8.2 mg/dL (8.5-10.1); CHLORIDE 106 mmol/L (98-107)
[2019-11-24 17:38] LABS: ALANINE AMINOTRANSFERASE 69 U/L (12-78); ALKALINE PHOSPHATASE 89 U/L (45-117); BILIRUBIN,TOTAL 1.7 mg/dL (0.2-1.0); TOTAL PROTEIN 5.4 g/dL (6.4-8.2)
[2019-11-24 17:45] LABS: MEAN CORPUSCULAR HEMOGLOBIN 32.4 pg (27.0-34.8); MEAN CORPUSCULAR HGB CONC 33.1 g/dL (32.4-35.8); MEAN CORPUSCULAR VOLUME 97.8 fL (80-100); MEAN PLATELET VOLUME 6.1 fL (7.4-10.4); PLATELET COUNT 349 x10^3/uL (130-400); RED BLOOD COUNT 2.95 x10^6/uL (3.82-5.3); RED CELL DISTRIBUTION WIDTH 21.9 % (9.6-15.2)
[2019-11-24 17:52] LABS: CULTURE INDICATED? NO
[2019-11-24 18:20] LABS: BASOPHILS # (AUTO) 0.11 x10^3/uL (0-0.1); BASOPHILS % (AUTO) 1 % (0-1); EOSINOPHILS # (AUTO) 0.08 x10^3/uL (0-0.4); EOSINOPHILS % (AUTO) 1 % (1-7); LYMPHOCYTES # (AUTO) 2.24 x10^3/uL (1-3.4); LYMPHOCYTES % (AUTO) 26 % (22-44); MD MORPH REVIEW ONLY; MONOCYTES % (AUTO) 9 % (2-9); NEUTROPHILS # (AUTO) 5.53 x10^3/uL (1.8-6.8); NEUTROPHILS % (AUTO) 63 % (42-75)
--- NOTE | 2019-11-24 18:21 | NUR ---
PT BACK FROM US
[2019-11-24 18:26] LABS: CRENATED 1+; OVALOCYTES 1+; POLYCHROMASIA 1+; ROULEAUX 1+; SPHEROCYTES 1+
[2019-11-24 18:27] LABS: <PLATELET ESTIMATE> ADEQUATE; <PLT MORPHOLOGY> NORMAL PLT MORPH
[2019-11-24 18:39] VITALS: BP 131/71
--- NOTE | 2019-11-24 18:53 | NUR ---
ARTD IN TO UPDATE PT ON POC, REPORT GIVEN TO MEREDITH RN
--- NOTE | 2019-11-24 19:09 | NUR ---
Received report from ABILIO Payne. This RN to assume care.
--- NOTE | 2019-11-24 19:30 | NUR ---
Patient given discharge instructions and they have confirmed that they understand the instructions. Patient ambulatory with steady gait. Belongings with patient.
== END 2019-11-24 19:32 | disposition home or self-care (01) ==
LOC: ED 18:20
DX: N95.0 Postmenopausal bleeding (principal); D62 Acute posthemorrhagic anemia; I10 Essential (primary) hypertension; I48.91 Unspecified atrial fibrillation
CPT/HCPCS: 36415; 76830; 80053; 81001; 85025; 99284

== ENCOUNTER → 2020-02-23 | Outpatient (CLI) | payer MEDICARE, MEDICAID ==
[~2020-02-23] MED LIST changes: +OXYcodone 5 MG/5 ML ORAL.SOL UDC ONE
== END | disposition home or self-care (01) ==
LOC: CFH 13:19
PROVIDERS: ATTEND Physician Assistant Medical
DX: I35.0 Nonrheumatic aortic (valve) stenosis (principal); I42.9 Cardiomyopathy, unspecified
CPT/HCPCS: 93306